=== PATIENT | female | born 1940 | race Caucasian/White ===

== ENCOUNTER 2018-06-11 19:26 | Emergency (ER) | payer MEDICARE, BC ==
[2018-06-11 19:57] LABS: #Basophils 0.1 thou/uL (0.0-0.2); #Eosinphils 0.3 thou/uL (0.0-0.7); #Lymphocytes 1.6 thou/uL (1.20-3.40); #Monocytes 0.3 thou/uL (0.11-0.59); #Neutrophils 2.6 thou/uL (1.40-6.50); %Basophils 1.3 % (0.0-1.0); %Eosinophils 6.5 % (0.0-10.0); %Lymphocytes 33.3 % (21.0-51.0); %Monocytes 6.3 % (0.0-10.0); %Neutrophils 52.6 % (42.0-75.0); Hemoglobin 12.1 g/dL (12.0-16.0); Mean Corpuscular HGB CONC 32.2 g/dL (32.0-36.0); Mean Corpuscular Hemoglobin 29.7 pg (27.0-31.0); Mean Platelet Volume 6.4 fL (7.4-10.4); Platelet Count 243 thou/uL (130-400); RBC Distribution Width 11.7 % (11.5-14.5); Red Blood Cell (RBC) Count 4.07 mill/uL (4.20-5.40); White Blood Cell (WBC) Count 4.9 thou/uL (4.8-10.8)
[2018-06-11 20:05] LABS: Prothrombin Time 12.5 SEC (12.0-14.7)
[2018-06-11 20:06] LABS: INR-International Normal Ratio 0.9; PTT 29.5 SEC (22.9-36.1)
[2018-06-11] MEDS ORDERED: Morphine 4 MG/ML VIAL ONE (20:07)
[2018-06-11 20:10] LABS: ALT (SGPT) 12 U/L (8-55); AST (SGOT) 15 U/L (5-34); Albumin 4.1 g/dL (3.4-4.8); Alkaline Phosphatase 56 U/L (40-150); Anion Gap 13 mmol/L (10-20); BUN (Urea Nitrogen) 25 mg/dL (9.8-20.1); Bilirubin, Total 0.2 mg/dL (0.2-1.2); Calc. Creatinine Clearance 0 mL/min (70-130); Calcium 9.1 mg/dL (7.8-10.44); Carbon Dioxide 26 mmol/L (23-31); Chloride 106 mmol/L (98-107); Estimated GFR-MDRD 81; Globulin 2.4 g/dL (2.4-3.5); Glucose 135 mg/dL (83-110); Potassium 3.9 mmol/L (3.5-5.1); Protein, Total 6.5 g/dL (6.0-8.3); Sodium 141 mmol/L (136-145)
[2018-06-11] MEDS ORDERED: Acetaminophen 500 MG TAB ONE (21:09)
[2018-06-11] MEDS ORDERED: Ketorolac Tromethamine 30 MG/ML VIAL ONE (21:57)
--- NOTE | 2018-06-11 22:50 | CT ---
CT BRAIN WITHOUT CONTRAST: Date: 06-11-18 Comparison: 04-28-11 FINDINGS: The ventricles are normal in size for age. No intracranial bleeding or extraaxial hematoma was seen. There was no sign of mass or acute stroke or edema. Minimal deep white matter lucency suggests mild c hronic ischemic change. The calvarium appears intact. The sphenoid sinus is clear except for some chr onic mucosal thickening on the left side. IMPRESSION: No acute intracranial finding. POS: HOME
--- NOTE | 2018-06-11 22:52 | RAD ---
RIGHT KNEE FOUR VIEWS: Date: 06-11-18 FINDINGS: NO fracture or joint effusion was seen. Minimal patellofemoral osteophytes re not impressive for age. Some faint meniscal calcifications are suggested medially. IMPRESSION: No acute findings. POS: HOME
--- NOTE | 2018-06-11 23:01 | CT ---
CT OF THE FACIAL BONES: Date: 06-11-18 FINDINGS: The facial bones appear intact. No fractures were seen. The paranasal sinuses are clear. The mandible appears intact. Prominent soft tissue swelling and soft tissue hematoma is seen over the right cheek , but the underlying bone appears intact. IMPRESSION: Soft tissue swelling but no acute bony fractures. POS: HOME
--- NOTE | 2018-06-11 23:11 | CT ---
CT OF THE CERVICAL SPINE: Date: 06-11-[address] of the cervical spine was performed following trauma. Axial slices were acquired followed b y coronal and sagittal reconstructions. 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 There is reversal of the normal cervical lordosis in the upper cervical region. No fracture or dislocation was seen. The C1-2 dens distance was normal and the soft tissues are normal in thickness. Disc space narrowing is parti cularly prominent at C4-5 and C5-6. Findings by levels follow: C1-2: No acute findings. Severe facet changes are seen on the left side at this level with bony overg rowth including the lateral mass or C1. There is a bony defect in C2 contiguous with the left neural foramen. This was present on an older CT scan and really has not changed much. C2-3: No acute findings. 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 There is mild right foraminal narrowing. C4-5: Disc osteophyte complex at this level. Mild to moderate bilateral foraminal narrowing. C5-6: Moderate bilateral foraminal narrowing due to osteophytes. Motion artifact is present. C6-7: Mild to moderate bilateral foraminal narrowing. No acute findings. Minimal anterolisthesis of C 6 on C7. C7-T1: No acute findings. The soft tissues of the neck were unremarkable. The lung apices are clear. IMPRESSION: Multiple severe degenerative changes as noted. No acute traumatic findings. POS: HOME
--- NOTE | 2018-06-11 23:13 | RAD ---
PORTABLE CHEST: Date: 06-11-18 FINDINGS: An AP portable film at 2030 shows the heart to be borderline in size. Faint calcification is present in the aortic arch. There is no widening or shift of the mediastinum. The lungs are fully inflated an d clear. There is resection or reabsorption of the distal end of the right clavicle leading to a wide AC joint. The finding is obviously chronic and not acute. IMPRESSION: No acute thoracic finding. POS: HOME
== END 2018-06-11 22:45 | disposition short-term general hospital (02) ==
LOC: BURERS 19:26
DX: S06.0X1A Concussion with loss of consciousness of 30 minutes or less, initial encounter (principal); S00.83XA Contusion of other part of head, initial encounter; S80.212A Abrasion, left knee, initial encounter; S80.211A Abrasion, right knee, initial encounter; E78.5 Hyperlipidemia, unspecified; I10 Essential (primary) hypertension; Z79.899 Other long term (current) drug therapy; Z79.82 Long term (current) use of aspirin; W19.XXXA Unspecified fall, initial encounter
CPT/HCPCS: 70450; 70486; 71045; 72125; 80053; 85025; 85610; 85730; 96374; 96375; J1885; J2270

== ENCOUNTER 2022-04-18 08:40 | Emergency (ER) | payer MEDICARE, BC | END 2022-04-18 09:25 | disposition home or self-care (01) | LOC: BURERS 08:40 | DX: T21.11XA Burn of first degree of chest wall, initial encounter (principal); T20.17XA Burn of first degree of neck, initial encounter; E78.00 Pure hypercholesterolemia, unspecified; I10 Essential (primary) hypertension; Z79.899 Other long term (current) drug therapy; X12.XXXA Contact with other hot fluids, initial encounter; Y93.89 Activity, other specified | CPT/HCPCS: 99283 ==